=== PATIENT | female | born 1990 | race Caucasian/White ===

== ENCOUNTER 2017-07-17 13:04 | Inpatient (IN) | payer MEDICAID ==
[~2017-07-17] VITALS: Ht 167.6 cm; Wt 111.4 kg
[~2017-07-17 13:04] MED LIST: PREN-29 PO
[2017-07-17 13:24] VITALS: Ht 167.6 cm; Wt 111.4 kg
[2017-07-17] MEDS ORDERED: METHYLERGONOVINE 0.2 MG INJ IM PRN (13:30)
[2017-07-17] MEDS ORDERED: MISOPROSTOL 200 MCG TAB PR PRN (13:30)
[2017-07-17] MEDS ORDERED: IBUPROFEN 600 MG TAB PO PRN (13:30)
[2017-07-17] MEDS ORDERED: LIDOCAINE 1% (MPF) 30 ML INJ INJ PRN (13:30)
[2017-07-17] MEDS ORDERED: OXYTOCIN 30 UNITS/LR 500 ML IV PRN (13:30)
[2017-07-17] MEDS ORDERED: LACTATED RINGER'S 1,000 ML IV PRN (13:30)
[2017-07-17] MEDS ORDERED: BUTORPHANOL 2 MG INJ IV PRN (13:30)
[2017-07-17] MEDS ORDERED: OXYTOCIN 30 UNITS/LR 500 ML IV SCH (13:30)
[2017-07-17] MEDS ORDERED: CARBOPROST 250 MCG INJ IM PRN (13:30)
[2017-07-17] MEDS: LACTATED RINGER'S 1,000 ML IV SCH ×2 (13:53→20:03)
[2017-07-17 14:07] LABS: BASOPHILS % 0.3 % (0.0-2.0); EOSINOPHILS # 0.1 10^3/ul (0.0-0.5); HEMATOCRIT 32.9 % (37.0-47.0); HEMOGLOBIN 11.1 g/dl (12.0-16.0); LYMPHOCYTES # 1.2 10^3/ul (0.8-2.9); LYMPHOCYTES % 17.7 % (15.0-51.0); MEAN CORPUSCULAR HEMOGLOBIN 29.8 pg (29.0-33.0); MEAN CORPUSCULAR HGB CONC 33.7 g/dl (32.0-37.0); MEAN CORPUSCULAR VOLUME 88.4 fl (82.0-101.0); MEAN PLATELET VOLUME 10.8 fl (7.4-10.4); MONOCYTE # 0.4 10^3/ul (0.3-0.9); NEUTROPHIL # 5.2 10^3/ul (1.6-7.5); NEUTROPHILS % 74.6 % (39.0-77.0); PLATELET COUNT 245 10^3/UL (140-415); RED BLOOD COUNT 3.72 10^6/ul (4.20-5.40); RED CELL DISTRIBUTION WIDTH 14.9 % (11.5-14.5)
[2017-07-17 14:22] LABS: INR 1.01; PARTIAL THROMBOPLASTIN TIME 27.9 Sec (25.0-35.0); PROTIME 13.3 Sec (12.2-14.2)
[2017-07-17] MEDS ORDERED: DINOPROSTONE 10 MG VAG SUPP VAG ONE (15:30)
--- NOTE | 2017-07-17 16:17 | RADRPT ---
PROCEDURE: Obstetrical ultrasound CLINICAL INDICATION: Low amniotic fluid index TECHNIQUE: Multiple sonographic images of the pelvis were obtained. The images were reviewed on a PACS workstation. COMPARISON: None FINDINGS: The cervix is not well visualized. There is a single viable intrauterine gestation. Cardiac activity is present with 141 beats per minute. There is a vertex presentation. The placenta is anterior. There is no evidence for an abruption or placenta previa. There is a low amount of amniotic fluid with an VENKAT = 5.5 cm. Measurements were made in order to determine age. The results are as follows (cm): BPD =8.96 HC =32.76 AC =35.72 FL =7.38 Estimated gestational age by ultrasound of approximately 37 weeks, 5 days. The estimated date of delivery by ultrasound is 08/02/2017. Estimated gestational age by LMP of approximately 39 weeks, 0 days. The estimated date of delivery by LMP is 07/24/2017. EFW = 3514 grams (57th percentile) IMPRESSION: Single viable intrauterine gestation of approximately 37 weeks, 5 days . The estimated date of delivery is 08/02/2017 . Dating by ultrasound is within 9 days of dating by LMP. Cephalic presentation. Low VENKAT of 5.5 cm. The cervix is not well visualized. Estimated weight in the 57th percentile. RPTAT: EE Physician Arcenio Date Time Electronically viewed and signed by Physician Arcenio on 07/17/2017 16:17 RA/
--- NOTE | 2017-07-17 16:17 | RADRPT ---
PROCEDURE: US OB biophysical profile. CLINICAL INDICATION: evaluation TECHNIQUE: Multiple sonographic images of the pelvis were obtained. The images were reviewed on a PACS workstation. COMPARISON: No prior studies are available for comparison. FINDINGS: There is a single viable intrauterine gestation. Cardiac activity is present with 131 beats per min nitza. There is a vertex presentation. The placenta is anterior. There is no evidence of placental abruption. There is a normal amount of amniotic fluid with an VENKAT = 5.5 cm. Biophysical profile: movement 2/2 tone 2/2. breathing 2/2 VENKAT 2/2 Total 04/17 RPTAT: AA . IMPRESSION: Normal biophysical profile. Low VENKAT of 5.5 cm. Physician Arcenio Date Time Electronically viewed and signed by Physician Arcenio on 07/17/2017 16:17 /
--- NOTE | 2017-07-17 18:39 | HP ---
Date/Time of Note Date/Time of Note DATE: 07/17/17 TIME: 18:31 OB - History Hx of Present Free Text/Dictation This is a 27 years old female with a EDC July 24, 2017 admitted at 39 weeks to the hospital for induction of labor due to oligohydramnios in the (low VENKAT,3) Chief Complaint: 39 weeks with oligohydramnios Estimated Due Date: Jul 24, 2017 : 2 Para: 1 Care: Good Care Ultrasounds: Normal mid trimester US Obstetrical Complications: Other ( depression with first ) Medical Complications: Psychiatric ( depression with first ) Past Family/Social History * Past Medical, Surgical, Family and Obstetric Histories reviewed from chart. Rubella: immune RPR/VDRL: Negative GBS Status: Negative HBsAG: Negative OB Admission Exam Physical Exam HEENT: WNL Heart: Rhythm Normal Lungs: Clear, Equal Abdomen: WNL Extremities: Normal Reflexes: Normal Cervical Dilatation: None Effacement: 0% Station: -3 Membranes: Intact Heart Rate: 130's Accelerations: Accelerations Present Decelerations: No Decelerations Varibility: Moderate Contractions on Admission: None Last 72 hours Lab Results CBC & BMP 07/17/17 13:50 OB Assessment/Plan Reason for admission: induction of labor Other plan: 27 years old 39 weeks admitted for induction of labor due to oligohydramnios with a low VENKAT of 3, pelvic examination on admission cervix long and closed vertex at -3 station plan of Cervidil induction, reason and indication, pros and cons, all her questions answered and she is willing to proceed with the induction of labor SUN KAN MD Jul 17, 2017 18:39
[2017-07-18] MEDS ORDERED: FENTAnyl 2MCG/ML-ROPIV 0.2% 100 ML ONE (01:24)
[2017-07-18] MEDS ORDERED: FENTAnyl 2MCG/ML-ROPIV 0.2% 100 ML BAG EPI SCH (02:00)
[2017-07-18] MEDS ORDERED: NALOXONE (0.4 MG/ML) INJ IV PRN (02:00)
[2017-07-18] MEDS: LACTATED RINGER'S 1,000 ML IV SCH (02:48)
[2017-07-18] MEDS ORDERED: MINERAL OIL LIGHT 10 ML VIAL TOP ONE (03:30)
[2017-07-18] MEDS ORDERED: ONDANSETRON 4 MG INJ IV ONE (06:46)
[2017-07-18] MEDS ORDERED: ONDANSETRON 4 MG INJ ONE (06:46)
[2017-07-18] MEDS: OXYTOCIN 30 UNITS/LR 500 ML IV SCH ×4 (09:22→16:22)
--- NOTE | 2017-07-18 09:59 | LDN ---
Date/Time of Note Date/Time of Note DATE: 07/18/17 TIME: 09:54 Delivery Summary Normal spontaneous vaginal delivery of a baby girl from OA position shoulders delivered without any difficulty rest of the baby's body follow cord clamped after stopped pulsation placenta spontaneous expulsion inspected complete patient sustained small first-degree perineal laceration and left inner labia 1 cm laceration which repaired with 4-0 chromic catgut Weeks of Gestation 39 weeks 1 day Placenta Delivered: Spontaneously Meconium: none Episiotomy: No Laceration repair: First-degree perineal laceration, left inner labial minora laceration, repaired with 3-0 and 4-0 chromic catgut Anesthesia type: Epidural Sponge & Needle done & correct: Yes All needle counts correct: Yes Any foreign bodies felt in the: No Problems: Delivery Information Sex Infant Sex: female Apgars 1 Minute: 9 5 Minute: 9 Suctioning Nose & mouth suctioned at [place]: Yes Delee suction performed: No Umbilical Cord Umbilical cord with: 3 Vessels Cord presentations: no nuchal cord Cord Blood was obtained: Yes Mother & Baby Disposition Disposition Mom & Baby to Maternity; Good: Yes SUN KAN MD Jul 18, 2017 09:59
[2017-07-18 11:50] VITALS: BP 127/71; PULSE 71; RESP 18
[2017-07-18] MEDS ORDERED: DIBUCAINE 1% 30 GM OINT PR PRN (12:00)
[2017-07-18] MEDS ORDERED: ACETAMINOPHEN 325 MG TAB PO PRN (12:00)
[2017-07-18] MEDS ORDERED: ONDANSETRON 4 MG INJ IV PRN (12:00)
[2017-07-18] MEDS ORDERED: BENZOCAINE 20% 56 ML SPRAY TOP PRN (12:00)
[2017-07-18] MEDS ORDERED: LANOLIN 7 GM TUBE TOP PRN (12:00)
[2017-07-18] MEDS ORDERED: HYDROCODONE/APAP (5/325) TAB PO PRN ×2 (12:00)
[2017-07-18] MEDS ORDERED: OXYCODONE/ASPIRIN (4.88/325) TAB PO PRN ×2 (12:00)
[2017-07-18] MEDS ORDERED: WITCH HAZEL/GLYCERIN PAD PR PRN (12:00)
[2017-07-18] MEDS: IBUPROFEN 600 MG TAB PO SCH ×2 (12:06→17:36)
[2017-07-18 16:20] VITALS: BP 109/55; PULSE 72; RESP 18
[2017-07-18 20:00] VITALS: BP 96/54; PULSE 89; RESP 20
[2017-07-18] MEDS: SENNA/DOCUSATE NA (8.6MG/50MG) TAB PO SCH (21:07)
[2017-07-19] MEDS: IBUPROFEN 600 MG TAB PO SCH ×5 (00:14→23:32)
[2017-07-19 00:30] VITALS: BP 112/60; PULSE 88; RESP 20
[2017-07-19 03:45] VITALS: BP 93/56; PULSE 67; RESP 20
[2017-07-19 07:30] VITALS: BP 112/56; PULSE 81; RESP 16
[2017-07-19] MEDS: SENNA/DOCUSATE NA (8.6MG/50MG) TAB PO SCH ×2 (08:50→21:06)
--- NOTE | 2017-07-19 10:18 | QN ---
Documentation Comment Post normal vaginal delivery day 1 Afebrile Vital signs are stable Abdomen soft, uterus firm, lochia normal, extremity normal Ambulation encouraged plan of a.m. discharge discussed, SUN KAN MD Jul 19, 2017 10:18
[2017-07-19 10:33] LABS: BASOPHILS % 0.3 % (0.0-2.0); EOSINOPHILS # 0.1 10^3/ul (0.0-0.5); EOSINOPHILS % 0.7 % (0.0-7.0); HEMATOCRIT 29.9 % (37.0-47.0); HEMOGLOBIN 9.7 g/dl (12.0-16.0); LYMPHOCYTES % 22.4 % (15.0-51.0); MEAN CORPUSCULAR HEMOGLOBIN 29.6 pg (29.0-33.0); MEAN CORPUSCULAR HGB CONC 32.4 g/dl (32.0-37.0); MEAN CORPUSCULAR VOLUME 91.2 fl (82.0-101.0); MEAN PLATELET VOLUME 10.9 fl (7.4-10.4); MONOCYTE # 0.5 10^3/ul (0.3-0.9); MONOCYTES % 5.1 % (0.0-11.0); NEUTROPHIL # 6.2 10^3/ul (1.6-7.5); NEUTROPHILS % 70.9 % (39.0-77.0); PLATELET COUNT 209 10^3/UL (140-415); RED BLOOD COUNT 3.28 10^6/ul (4.20-5.40); RED CELL DISTRIBUTION WIDTH 15.3 % (11.5-14.5); WHITE BLOOD COUNT 8.8 10^3/ul (4.8-10.8)
[2017-07-19] MEDS ORDERED: INFLUENZA VIRUS VACCINE 0.5 ML SYG IM* ONE (13:00)
[2017-07-19 15:10] VITALS: BP 106/58; PULSE 76; RESP 16
[2017-07-19 19:45] VITALS: BP 105/57; PULSE 83; RESP 18
[2017-07-20 04:15] VITALS: BP 112/56; PULSE 68; RESP 18
[2017-07-20] MEDS: IBUPROFEN 600 MG TAB PO SCH ×3 (06:04→18:00)
[2017-07-20 07:45] VITALS: BP 116/69; PULSE 78; RESP 16
[2017-07-20] MEDS: SENNA/DOCUSATE NA (8.6MG/50MG) TAB PO SCH (08:49)
[2017-07-20] MEDS ORDERED: MEASLES,MUMPS,RUBELLA VACCINE INJ SC* ONE (09:00)
--- NOTE | 2017-07-20 09:00 | PD.PPDC ---
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
--- NOTE | 2017-07-20 09:02 | DS ---
Date/Time of Note Date/Time of Note DATE: 07/20/17 TIME: 09:01 Discharge Summary Admission/Discharge Info Admit Date/Time Jul 17, 2017 at 13:04 Discharge Date/Time July 20, 2017 at 9 AM Discharge Diagnosis Day 2 post normal vaginal delivery Patient Condition: Good Procedures Normal spontaneous vaginal delivery Hx of Present Illness Term in labor Hospital Course Satisfactory recovery uneventful Home Meds Reported Medications Vit-Fe Fumarate-FA* (Rolando Tablet*) 1 Tab Tablet, 1 TAB PO DAILY, TAB 07/10/14 Follow-up Plan instruction given recommended to make appointment to be seen at the clinic in 2 weeks Primary Care Provider Care Physician No Primary Time spent on discharge: < 30 minutes Pending Labs Laboratory Tests Test 07/19/17 09:39 White Blood Count 8.810^3/ul (4.8-10.8) Red Blood Count 3.2810^6/ul (4.20-5.40) Hemoglobin 9.7g/dl (12.0-16.0) Hematocrit 29.9% (37.0-47.0) Mean Corpuscular Volume 91.2fl (82.0-101.0) Mean Corpuscular Hemoglobin 29.6pg (29.0-33.0) Mean Corpuscular Hemoglobin Concent 32.4g/dl (32.0-37.0) Red Cell Distribution Width 15.3% (11.5-14.5) Platelet Count 80762^3/UL (140-415) Mean Platelet Volume 10.9fl (7.4-10.4) Neutrophils % 70.9% (39.0-77.0) Lymphocytes % 22.4% (15.0-51.0) Monocytes % 5.1% (0.0-11.0) Eosinophils % 0.7% (0.0-7.0) Basophils % 0.3% (0.0-2.0) Nucleated Red Blood Cells % 0.0/100WBC (0.0-0.0) Neutrophils # 6.210^3/ul (1.6-7.5) Lymphocytes # 2.010^3/ul (0.8-2.9) Monocytes # 0.510^3/ul (0.3-0.9) Eosinophils # 0.110^3/ul (0.0-0.5) Basophils # 0.010^3/ul (0.0-0.1) Nucleated Red Blood Cells # 0.010^3/ul (0.0-0.0) SUN KAN MD Jul 20, 2017 09:02
== END 2017-07-20 18:32 | disposition home or self-care (01) | DRG 775 ==
LOC: L-D 13:04 → PP1 07-18 11:47
PROVIDERS: ADMIT Obstetrics & Gynecology; ATTEND Obstetrics & Gynecology
PROC: 10E0XZZ Delivery of Products of Conception, External Approach (ICD-10-PCS; principal; 2017-07-18)
PROC: 0HQ9XZZ Repair Perineum Skin, External Approach (ICD-10-PCS; 2017-07-18)
PROC: 3E0P3VZ Introduction of Hormone into Female Reproductive, Percutaneous Approach (ICD-10-PCS; 2017-07-18)
DX: O70.0 First degree perineal laceration during delivery (principal); Z23 Encounter for immunization; Z37.0 Single live birth; Z3A.39 39 weeks gestation of pregnancy
CPT/HCPCS: 62319; 76815; 76818; 85025; 85610; 85730; 86592; 86900; 86901; 87340; 90686; J0595; J2405; J2590; J3010; J7120